=== PATIENT | female | born 1925 | race Caucasian/White ===

== ENCOUNTER 2017-01-07 10:07 | Emergency (ER) | payer OTHER ==
[~2017-01-07] VITALS: Ht 154.9 cm; Wt 50.0 kg
[2017-01-07] MEDS ORDERED: MORPHINE SULFATE 4 MG/ML CPJ (NOT FOR IM USE) IV STA (10:43)
[2017-01-07] MEDS ORDERED: ONDANSETRON HCL 4MG/2ML VIAL IV STA (10:43)
[2017-01-07 11:26] LABS: BASOPHILS % 0.8 % (0.0-2.0); EOSINOPHILS % 1.7 % (0.0-5.0); HEMATOCRIT. 40.1 % (36.0-48.0); HEMOGLOBIN. 13.2 g/dL (12.0-16.0); LYMPHOCYTES % 14.3 % (20.0-50.0); MEAN CORPUSCULAR VOLUME 90.9 fL (81.0-99.0); MEAN PLATELET VOLUME 8.7 fl (7.4-10.4); NEUTROPHILS % 78.2 % (40.0-76.0); PLATELET 157 x1000/uL (130-400); RED BLOOD CELL COUNT 4.41 mill/uL (4.2-5.4); RED CELL DISTRIBUTION WIDTH 13.7 % (11.6-14.6)
[2017-01-07 11:35] LABS: CARBON DIOXIDE 28 mEq/L (21-32); CHLORIDE 103 mEq/L (98-107)
[2017-01-07] MEDS ORDERED: SODIUM CHLORIDE 0.9% 1,000 ML IV ONE (12:00)
[2017-01-07 12:56] LABS: CLARITY URINE CLOUDY (CLEAR); COLOR URINE YELLOW (YELLOW); GLUCOSE URINE NEGATIVE (NEGATIVE); KETONES URINE NEGATIVE (NEGATIVE); LEUKOCYTE ESTERASE URINE 2+ (NEGATIVE); NITRITE URINE NEGATIVE (NEGATIVE); OCCULT BLOOD URINE NEGATIVE (NEGATIVE); PH URINE 8.5 (4.5-8.0); PROTEIN URINE NEGATIVE (NEGATIVE); SPECIFIC GRAVITY URINE 1.008 (1.005-1.030); UROBILINOGEN URINE 0.2 E.U./dL (0.2-1.0)
[2017-01-07] MEDS ORDERED: LORAZEPAM 2MG/ML CPJ IV ONE (14:45)
[2017-01-07] MEDS ORDERED: MORPHINE SULFATE 2 MG/ML CPJ (NOT FOR IM USE) IV ONE (14:45)
[2017-01-07 17:45] VITALS: BP 124/75
== END 2017-01-07 18:18 | disposition home or self-care (01) ==
LOC: ER 10:18
DX: K80.20 Calculus of gallbladder without cholecystitis without obstruction (principal); I10 Essential (primary) hypertension; E78.00 Pure hypercholesterolemia, unspecified; Z88.2 Allergy status to sulfonamides; Z88.5 Allergy status to narcotic agent; Z87.440 Personal history of urinary (tract) infections
CPT/HCPCS: 36415; 74176; 80053; 81001; 83690; 85025; 96361; 96374; 96375; 96376; 99285; J2060; J2270; J2405; J7030